=== PATIENT | female | born 1965 | race African-American/Black ===

== ENCOUNTER 2022-03-07 08:50 | Inpatient (IN) | payer MEDICARE, MEDICAID ==
[~2022-03-07] VITALS: Ht 172.7 cm; Wt 62.6 kg
[2022-03-07 10:25] LABS: HEMATOCRIT. 25.1 % (36.0-48.0); HEMOGLOBIN. 8.1 g/dL (12.0-16.0); MEAN CORPUSCULAR HEMOGLOBIN 29.9 pg (28.0-32.0); MEAN CORPUSCULAR VOLUME 92.2 fL (81.0-99.0); MEAN PLATELET VOLUME 10.7 fl (7.4-10.4); PLATELET 210 x1000/uL (130-400); RED BLOOD CELL COUNT 2.72 mill/uL (4.2-5.4); RED CELL DISTRIBUTION WIDTH 18.2 % (11.6-14.6)
[2022-03-07 10:28] LABS: CHLORIDE 99 mEq/L (98-107)
[2022-03-07 11:14] LABS: PLATELET ESTIMATE NORMAL
[2022-03-07] MEDS ORDERED: ASPIRIN 81MG TABLET PO ONE (13:30)
[2022-03-07] MEDS ORDERED: HYDROCODONE/ACETAMINOPHEN 5/325MG TABLET PO ONE (13:30)
[2022-03-07 15:25] LABS: HEPATITIS B SURFACE ANTIGEN NEGATIVE
[2022-03-07 16:02] VITALS: BP 122/47
[2022-03-07 20:00] VITALS: BP 112/67
[2022-03-07 21:33] VITALS: BP 112/67
[2022-03-07] MEDS ORDERED: IPRATROPIUM/ALBUTEROL 0.5-3(2.5)MG/3ML NEB HHN PRN (21:45)
[2022-03-07] MEDS ORDERED: MAGNESIUM/ALUMINUM HYDROXIDE/SIMETHICONE 30ML UDC PO PRN (21:45)
[2022-03-07] MEDS ORDERED: ZOLPIDEM TARTRATE 5MG TABLET PO PRN (21:45)
[2022-03-07] MEDS ORDERED: CLONIDINE 0.1MG TABLET PO PRN (21:45)
[2022-03-07] MEDS ORDERED: ACETAMINOPHEN 325MG TABLET PO PRN ×2 (21:45)
[2022-03-07] MEDS ORDERED: DIPHENHYDRAMINE 50MG/ML VIAL IV PRN (21:45)
[2022-03-07] MEDS ORDERED: ONDANSETRON HCL 4MG/2ML INJ IV PRN (21:45)
[2022-03-07] MEDS ORDERED: NALOXONE HCL 0.4MG/ML VIAL IV PRN (22:45)
[2022-03-07] MEDS: SODIUM CHLORIDE 0.9% INJ 3ML FLUSH IVF SCH (23:59)
[2022-03-08] VITALS: BP 132/68
[2022-03-08] MEDS: HYDROCODONE/ACETAMINOPHEN 5/325MG TABLET PO PRN ×2 (00:04→11:33)
[2022-03-08] MEDS ORDERED: FAMO20TA8 PO (02:25)
[2022-03-08] MEDS ORDERED: ACYC200C31 PO (02:26)
[2022-03-08] MEDS ORDERED: FURO20TA4 PO (02:29)
[2022-03-08] MEDS ORDERED: GABA-532 SSP (02:34)
[2022-03-08] MEDS ORDERED: AMLO5TAB4 PO (02:36)
[2022-03-08] MEDS ORDERED: CALC667T2 PO (02:50)
[2022-03-08] MEDS ORDERED: CALC667T2 MT (02:50)
[2022-03-08 04:00] VITALS: BP 120/72
[2022-03-08 08:00] VITALS: BP 95/62
[2022-03-08 12:00] VITALS: BP 109/71
[2022-03-08] MEDS: SODIUM CHLORIDE 0.9% INJ 3ML FLUSH IVF SCH ×2 (12:17→13:13)
[2022-03-08 16:00] VITALS: BP 109/73
[2022-03-08 17:18] VITALS: BP 110/71
== END 2022-03-08 18:25 | disposition home or self-care (01) | DRG 73 ==
LOC: ER 08:50 → 7WST 13:18 → ENRESERV 13:59
PROVIDERS: ADMIT Internal Medicine; ATTEND Internal Medicine
PROC: 02HV33Z Insertion of Infusion Device into Superior Vena Cava, Percutaneous Approach (ICD-10-PCS; principal; 2022-03-07)
DX: G90.8 Other disorders of autonomic nervous system (principal); N18.6 End stage renal disease; I13.11 Hypertensive heart and chronic kidney disease without heart failure, with stage 5 chronic kidney disease, or end stage renal disease; E46 Unspecified protein-calorie malnutrition; C90.00 Multiple myeloma not having achieved remission; E11.22 Type 2 diabetes mellitus with diabetic chronic kidney disease; Z99.2 Dependence on renal dialysis; D64.9 Anemia, unspecified; E87.70 Fluid overload, unspecified; Z68.21 Body mass index [BMI] 21.0-21.9, adult; Z91.15 Patient's noncompliance with renal dialysis; Z88.3 Allergy status to other anti-infective agents
CPT/HCPCS: 36415; 71045; 80053; 82962; 84484; 85025; 86705; 86709; 86803; 87340; 93005; 99285

== ENCOUNTER 2022-03-19 08:52 | Inpatient (IN) | payer MEDICARE, MEDICAID ==
[~2022-03-19] VITALS: Ht 165.1 cm; Wt 81.2 kg
[~2022-03-19 08:52] MED LIST: ACYC200C31 PO; AMLO5TAB4 PO; CALC667T2 MT; CALC667T2 PO; FAMO20TA8 PO; FURO20TA4 PO; GABA-532 SSP
[2022-03-19 09:37] LABS: MEAN CORPUSCULAR HEMOGLOBIN 28.4 pg (28.0-32.0); MEAN CORPUSCULAR VOLUME 93.6 fL (81.0-99.0); MEAN PLATELET VOLUME 10.1 fl (7.4-10.4); PLATELET 303 x1000/uL (130-400); RED BLOOD CELL COUNT 2.43 mill/uL (4.2-5.4); RED CELL DISTRIBUTION WIDTH 19.2 % (11.6-14.6)
[2022-03-19 09:46] LABS: CHLORIDE 98 mEq/L (98-107)
[2022-03-19 09:48] LABS: INR 1.1; PROTHROMBIN TIME 11.8 sec (9.6-11.0)
[2022-03-19 10:11] LABS: HEMATOCRIT. 22.7 % (36.0-48.0); HEMOGLOBIN. 6.9 g/dL (12.0-16.0)
[2022-03-19 10:41] LABS: PLATELET ESTIMATE NORMAL
[2022-03-19 12:21] LABS: HEPATITIS B SURFACE ANTIGEN NEGATIVE
[2022-03-19 13:33] LABS: CLARITY URINE CLEAR (CLEAR); COLOR URINE YELLOW (YELLOW); KETONES URINE NEGATIVE (NEGATIVE); LEUKOCYTE ESTERASE URINE NEGATIVE (NEGATIVE); NITRITE URINE NEGATIVE (NEGATIVE); OCCULT BLOOD URINE NEGATIVE (NEGATIVE); PH URINE 7.5 (4.5-8.0); PROTEIN URINE 2+ (NEGATIVE); SPECIFIC GRAVITY URINE 1.009 (1.005-1.030); UROBILINOGEN URINE 0.2 E.U./dL (0.2-1.0)
[2022-03-19] MEDS ORDERED: CLONIDINE 0.1MG TABLET PO PRN (14:00)
[2022-03-19] MEDS: SODIUM CHLORIDE 0.9% INJ 3ML FLUSH IVF SCH ×2 (14:00→21:17)
[2022-03-19] MEDS ORDERED: ONDANSETRON HCL 4MG/2ML INJ IV PRN (14:00)
[2022-03-19] MEDS ORDERED: MAGNESIUM HYDROXIDE 400MG/5ML 30ML UDC PO PRN (14:00)
[2022-03-19] MEDS ORDERED: GUAIFENESIN 200MG/10ML SUGAR FREE UDC PO PRN (14:00)
[2022-03-19] MEDS ORDERED: ACETAMINOPHEN 325MG TABLET PO PRN ×2 (14:00)
[2022-03-19] MEDS ORDERED: DIPHENHYDRAMINE 50MG/ML VIAL IV PRN (14:00)
[2022-03-19] MEDS ORDERED: NALOXONE HCL 0.4MG/ML VIAL IV PRN (14:15)
[2022-03-19 15:30] VITALS: BP 105/60
[2022-03-19 16:27] VITALS: BP 110/65
[2022-03-19 20:00] VITALS: BP 90/68
[2022-03-19] MEDS ORDERED: ZOLPIDEM TARTRATE 5MG TABLET PO PRN (21:00)
[2022-03-19] MEDS: OMEPRAZOLE 20MG CAPSULE EXTENDED RELEASE PO SCH (21:16)
[2022-03-19] MEDS: HYDROCODONE/ACETAMINOPHEN 5/325MG TABLET PO PRN (21:17)
[2022-03-20] VITALS (15 sets, daily range): BP systolic 87–120; BP diastolic 47–68
[2022-03-20] MEDS: SODIUM CHLORIDE 0.9% INJ 3ML FLUSH IVF SCH ×3 (06:36→21:47)
[2022-03-20] MEDS: OMEPRAZOLE 20MG CAPSULE EXTENDED RELEASE PO SCH ×2 (06:36→21:00)
[2022-03-20] MEDS: HYDROCODONE/ACETAMINOPHEN 5/325MG TABLET PO PRN ×2 (06:37→16:57)
[2022-03-20 06:58] LABS: MEAN CORPUSCULAR HEMOGLOBIN 28.3 pg (28.0-32.0); MEAN CORPUSCULAR VOLUME 90.2 fL (81.0-99.0); PLATELET 245 x1000/uL (130-400); RED BLOOD CELL COUNT 2.09 mill/uL (4.2-5.4); RED CELL DISTRIBUTION WIDTH 18.5 % (11.6-14.6)
[2022-03-20 07:32] LABS: HEMATOCRIT. 18.9 % (36.0-48.0); HEMOGLOBIN. 5.9 g/dL (12.0-16.0)
[2022-03-20] MEDS ORDERED: VANCOMYCIN 1.25GM PMX (XELLIA) 250 ML IV SCH (10:00)
[2022-03-20 11:46] LABS: TOTAL IRON BINDING CAPACITY 153 ug/dL (250-450)
[2022-03-20 15:39] LABS: PLATELET ESTIMATE NORMAL
[2022-03-21] VITALS: BP 95/54
[2022-03-21 04:00] VITALS: BP 115/56
[2022-03-21] MEDS: SODIUM CHLORIDE 0.9% INJ 3ML FLUSH IVF SCH ×2 (05:11→14:00)
[2022-03-21] MEDS: OMEPRAZOLE 20MG CAPSULE EXTENDED RELEASE PO SCH (06:13)
[2022-03-21 08:08] VITALS: BP 100/63
[2022-03-21 08:15] LABS: HEMATOCRIT. 24.4 % (36.0-48.0); HEMOGLOBIN. 7.9 g/dL (12.0-16.0); MEAN CORPUSCULAR HEMOGLOBIN 28.1 pg (28.0-32.0); MEAN CORPUSCULAR VOLUME 86.2 fL (81.0-99.0); MEAN PLATELET VOLUME 9.7 fl (7.4-10.4); PLATELET 260 x1000/uL (130-400); RED BLOOD CELL COUNT 2.83 mill/uL (4.2-5.4); RED CELL DISTRIBUTION WIDTH 21.2 % (11.6-14.6)
[2022-03-21 11:50] VITALS: BP 118/65
[2022-03-21] MEDS ORDERED: IRON SUCROSE COMPLEX 100 MG/5 ML ML IV NR (15:30)
[2022-03-21 16:08] VITALS: BP 117/78
[2022-03-21 16:29] VITALS: BP 117/78
[2022-03-22 07:51] LABS: PLATELET ESTIMATE NORMAL
[2022-03-22 09:10] LABS: LAMBDA LT CHAINS FREE SERUM 4801.5 mg/L (5.7-26.3)
== END 2022-03-21 16:46 | disposition home or self-care (01) | DRG 70 ==
LOC: ER 08:52 → 6WST 11:51 → EDBEDREQSVC 11:58 → EDBEDREQTM 11:58 → EDBEDREQ 11:58 → ENRESERV 12:14
PROVIDERS: ADMIT Internal Medicine; ATTEND Internal Medicine
PROC: 5A1D70Z Performance of Urinary Filtration, Intermittent, Less than 6 Hours Per Day (ICD-10-PCS; principal; 2022-03-19)
PROC: 30233N1 Transfusion of Nonautologous Red Blood Cells into Peripheral Vein, Percutaneous Approach (ICD-10-PCS; 2022-03-20)
PROC: 5A1D70Z Performance of Urinary Filtration, Intermittent, Less than 6 Hours Per Day (ICD-10-PCS; 2022-03-21)
DX: G93.41 Metabolic encephalopathy (principal); N18.6 End stage renal disease; I12.0 Hypertensive chronic kidney disease with stage 5 chronic kidney disease or end stage renal disease; C90.00 Multiple myeloma not having achieved remission; D72.825 Bandemia; E61.1 Iron deficiency; E66.9 Obesity, unspecified; M19.90 Unspecified osteoarthritis, unspecified site; F03.90 Unspecified dementia, unspecified severity, without behavioral disturbance, psychotic disturbance, mood disturbance, and anxiety; D64.9 Anemia, unspecified; Z99.2 Dependence on renal dialysis; Z68.29 Body mass index [BMI] 29.0-29.9, adult; Z88.6 Allergy status to analgesic agent; Z79.899 Other long term (current) drug therapy
CPT/HCPCS: 36415; 71045; 80048; 80053; 80202; 81003; 82784; 83540; 83550; 83605; 83883; 84145; 85025; 86334; 86705; 86709; 86803; 86850; 86870; 86900; 86920; 87340; 93005; 99291; J3370; P9016

== ENCOUNTER 2022-04-01 14:05 | Inpatient (IN) | payer MEDICARE, MEDICAID ==
[~2022-04-01] VITALS: Ht 167.6 cm; Wt 64.9 kg
[2022-04-01] VITALS (24 sets, daily range): BP systolic 76–208; BP diastolic 54–137
[2022-04-01] MEDS ORDERED: SODIUM CHLORIDE 0.9% 1,000 ML IV ONE (14:45)
[2022-04-01 15:30] LABS: CLARITY URINE CLEAR (CLEAR); COLOR URINE YELLOW (YELLOW); KETONES URINE NEGATIVE (NEGATIVE); LEUKOCYTE ESTERASE URINE NEGATIVE (NEGATIVE); NITRITE URINE NEGATIVE (NEGATIVE); OCCULT BLOOD URINE TRACE (NEGATIVE); PH URINE 7.5 (4.5-8.0); PROTEIN URINE 2+ (NEGATIVE); SPECIFIC GRAVITY URINE 1.015 (1.005-1.030)
[2022-04-01 15:40] LABS: MEAN CORPUSCULAR HEMOGLOBIN 26.4 pg (28.0-32.0); MEAN CORPUSCULAR VOLUME 89.1 fL (81.0-99.0); MEAN PLATELET VOLUME 10.9 fl (7.4-10.4); PLATELET 263 x1000/uL (130-400); RED BLOOD CELL COUNT 1.69 mill/uL (4.2-5.4); RED CELL DISTRIBUTION WIDTH 20.7 % (11.6-14.6)
[2022-04-01 15:44] LABS: INR 1.1
[2022-04-01 15:53] LABS: HEMATOCRIT. 15.1 % (36.0-48.0); HEMOGLOBIN. 4.5 g/dL (12.0-16.0)
[2022-04-01 16:43] LABS: CHLORIDE 97 mEq/L (98-107)
[2022-04-01] MEDS ORDERED: VANCOMYCIN 1G PREMIX 200 ML IV ONE (17:00)
[2022-04-01] MEDS ORDERED: PIPERACILLIN/TAZ 3.375G PREMIX 50 ML IV ONE (17:00)
[2022-04-01] MEDS ORDERED: FUROSEMIDE 100MG/10ML VIAL IV STA (17:07)
[2022-04-01] MEDS ORDERED: INSULIN REGULAR (HUMULIN R) 300UNITS/3ML VIAL IV ONE (17:15)
[2022-04-01] MEDS ORDERED: CALCIUM CHLORIDE 1GM/10ML SYR IV ONE (17:15)
[2022-04-01] MEDS ORDERED: DEXTROSE 50% WATER 50ML SYRINGE IV ONE (17:15)
[2022-04-01 17:41] LABS: PLATELET ESTIMATE NORMAL
[2022-04-01] MEDS ORDERED: VANCOMYCIN 1GM PMX (XELLIA) 200 ML IV NR (18:45)
[2022-04-01 19:42] LABS: HEPATITIS B SURFACE ANTIGEN NEGATIVE
[2022-04-01] MEDS ORDERED: ONDANSETRON HCL 4MG/2ML INJ IV PRN (20:45)
[2022-04-01] MEDS ORDERED: ACETAMINOPHEN 325MG TABLET PO PRN (20:45)
[2022-04-01] MEDS ORDERED: HYDRALAZINE 20MG/ML VIAL IV PRN (20:45)
[2022-04-01] MEDS: PANTOPRAZOLE SODIUM 40 MG/VIAL IV SCH (23:00)
[2022-04-02] VITALS (86 sets, daily range): BP systolic 81–121; BP diastolic 46–90
[2022-04-02] MEDS ORDERED: MAGNESIUM/ALUMINUM HYDROXIDE/SIMETHICONE 30ML UDC PO PRN (01:45)
[2022-04-02] MEDS ORDERED: DIPHENHYDRAMINE 50MG/ML VIAL IV PRN (01:45)
[2022-04-02] MEDS ORDERED: ZOLPIDEM TARTRATE 5MG TABLET PO PRN (01:45)
[2022-04-02] MEDS ORDERED: CLONIDINE 0.1MG TABLET PO PRN (01:45)
[2022-04-02] MEDS ORDERED: ACETAMINOPHEN 325MG TABLET PO PRN ×2 (01:45)
[2022-04-02 01:59] LABS: MEAN CORPUSCULAR HEMOGLOBIN 26.7 pg (28.0-32.0); MEAN CORPUSCULAR VOLUME 84.9 fL (81.0-99.0); PLATELET 203 x1000/uL (130-400); RED BLOOD CELL COUNT 2.35 mill/uL (4.2-5.4); RED CELL DISTRIBUTION WIDTH 18.6 % (11.6-14.6)
[2022-04-02 02:07] LABS: HEMOGLOBIN 6.3 g/dL (12.0-16.0)
[2022-04-02] MEDS: IRON SUCROSE COMPLEX 100 MG/5 ML ML IV SCH (02:43)
[2022-04-02] MEDS: HYDROCODONE/ACETAMINOPHEN 5/325MG TABLET PO PRN (03:19)
[2022-04-02] MEDS: SODIUM CHLORIDE 0.9% INJ 3ML FLUSH IVF SCH ×3 (05:33→22:18)
[2022-04-02 08:44] LABS: HEMATOCRIT. 22.8 % (36.0-48.0); HEMOGLOBIN. 7.6 g/dL (12.0-16.0); MEAN CORPUSCULAR HEMOGLOBIN 27.4 pg (28.0-32.0); MEAN CORPUSCULAR VOLUME 82.5 fL (81.0-99.0); MEAN PLATELET VOLUME 10.4 fl (7.4-10.4); PLATELET 209 x1000/uL (130-400); RED BLOOD CELL COUNT 2.77 mill/uL (4.2-5.4); RED CELL DISTRIBUTION WIDTH 17.6 % (11.6-14.6)
[2022-04-02] MEDS: PANTOPRAZOLE SODIUM 40 MG/VIAL IV SCH (08:49)
[2022-04-02] MEDS: PIPERACILLIN/TAZOBACTAM 3.375 G in DEXTROSE 5% WATER 50 ML IV SCH ×2 (08:49→21:43)
[2022-04-02] MEDS ORDERED: VANCOMYCIN 500MG PREMIX 100 ML IV SCH ×2 (10:00→16:00)
[2022-04-02 12:30] LABS: PLATELET ESTIMATE NORMAL
[2022-04-03] VITALS (27 sets, daily range): BP systolic 84–129; BP diastolic 37–94
[2022-04-03] MEDS ORDERED: IRON SUCROSE COMPLEX 100 MG/5 ML ML IV NR (04:30)
[2022-04-03] MEDS: IRON SUCROSE COMPLEX 100 MG/5 ML ML IV SCH (04:39)
[2022-04-03 05:30] LABS: HEMATOCRIT 21.8 % (36.0-48.0); HEMOGLOBIN 7.1 g/dL (12.0-16.0); MEAN CORPUSCULAR HEMOGLOBIN 27.6 pg (28.0-32.0); PLATELET 168 x1000/uL (130-400); RED BLOOD CELL COUNT 2.56 mill/uL (4.2-5.4); RED CELL DISTRIBUTION WIDTH 18.4 % (11.6-14.6)
[2022-04-03] MEDS: SODIUM CHLORIDE 0.9% INJ 3ML FLUSH IVF SCH ×2 (06:34→14:00)
[2022-04-03 08:37] LABS: BG BASE EXCESS -0.9 mmol/L (-2.0-2.0); BG CARBOXYHEMOGLOBIN 1.9 % (0.5-1.5); BG DEOXYHEMOGLOBIN 3.2 % (0.0-5.0); BG FRACTION INSPIRED OXYGEN 21; BG HCO3 ACT 23.4 mmol/L (22.0-26.0); BG METHEMOGLOBIN 0.3 % (0.0-1.5); BG OXYGEN SATURATION 96.7 % (92.0-98.5); BG OXYHEMOGLOBIN 94.6 % (94.0-97.0); BG PCO2 36.6 mmHg (35.0-45.0); BG PH 7.423 (7.350-7.450); BG PO2 84.3 mmHg (75.0-100.0); BG SAMPLE SITE LEFT RADIAL; BG VENT MODE ROOM AIR
[2022-04-03] MEDS: PANTOPRAZOLE SODIUM 40 MG/VIAL IV SCH (09:31)
[2022-04-03] MEDS: PIPERACILLIN/TAZOBACTAM 3.375 G in DEXTROSE 5% WATER 50 ML IV SCH ×2 (09:32→23:27)
[2022-04-03] MEDS ORDERED: VANCOMYCIN 500MG PREMIX 100 ML IV SCH (21:00)
[2022-04-04] VITALS: BP 104/58
[2022-04-04 04:00] VITALS: BP 95/52
[2022-04-04] MEDS: HYDROCODONE/ACETAMINOPHEN 5/325MG TABLET PO PRN (04:39)
[2022-04-04 08:00] VITALS: BP 105/60
[2022-04-04] MEDS: PIPERACILLIN/TAZOBACTAM 3.375 G in DEXTROSE 5% WATER 50 ML IV SCH ×2 (09:00→20:13)
[2022-04-04] MEDS: PANTOPRAZOLE SODIUM 40 MG/VIAL IV SCH (09:06)
[2022-04-04 12:00] VITALS: BP 103/55
[2022-04-04] MEDS: SEVELAMER CARBONATE 800 MG TABLET PO SCH ×2 (12:50→17:50)
[2022-04-04] MEDS: SODIUM CHLORIDE 0.9% INJ 3ML FLUSH IVF SCH (14:00)
[2022-04-04 16:00] VITALS: BP 107/61
[2022-04-04 20:00] VITALS: BP 115/67
[2022-04-05] VITALS: BP 101/52
[2022-04-05 04:00] VITALS: BP 100/55
[2022-04-05 08:00] VITALS: BP 109/59
[2022-04-05 08:22] LABS: HEMATOCRIT. 21.9 % (36.0-48.0); HEMOGLOBIN. 7.1 g/dL (12.0-16.0); MEAN CORPUSCULAR HEMOGLOBIN 27.2 pg (28.0-32.0); MEAN CORPUSCULAR VOLUME 84.1 fL (81.0-99.0); MEAN PLATELET VOLUME 10.4 fl (7.4-10.4); PLATELET 141 x1000/uL (130-400); RED CELL DISTRIBUTION WIDTH 18.6 % (11.6-14.6)
[2022-04-05] MEDS: PIPERACILLIN/TAZOBACTAM 3.375 G in DEXTROSE 5% WATER 50 ML IV SCH ×2 (09:14→20:32)
[2022-04-05] MEDS: SEVELAMER CARBONATE 800 MG TABLET PO SCH ×3 (09:14→17:53)
[2022-04-05] MEDS: PANTOPRAZOLE SODIUM 40 MG/VIAL IV SCH (09:14)
[2022-04-05] MEDS: FOLIC ACID/VITAMIN B COMP W-C TABLET PO SCH (09:14)
[2022-04-05 12:07] VITALS: BP 90/55
[2022-04-05] MEDS: SODIUM CHLORIDE 0.9% INJ 3ML FLUSH IVF SCH ×2 (14:00→21:40)
[2022-04-05 16:05] VITALS: BP 89/54
[2022-04-05] MEDS: MIDODRINE HCL 5MG TABLET PO SCH (16:11)
[2022-04-05 19:23] LABS: PLATELET ESTIMATE NORMAL
[2022-04-05 20:00] VITALS: BP 106/62
[2022-04-06] VITALS: BP 91/41
[2022-04-06 04:00] VITALS: BP 100/52
[2022-04-06] MEDS: SODIUM CHLORIDE 0.9% INJ 3ML FLUSH IVF SCH ×3 (05:40→21:15)
[2022-04-06 08:00] VITALS: BP 102/57
[2022-04-06 08:57] LABS: HEMATOCRIT. 21.7 % (36.0-48.0); HEMOGLOBIN. 7.1 g/dL (12.0-16.0); MEAN CORPUSCULAR HEMOGLOBIN 27.1 pg (28.0-32.0); MEAN PLATELET VOLUME 10.4 fl (7.4-10.4); PLATELET 145 x1000/uL (130-400); RED BLOOD CELL COUNT 2.62 mill/uL (4.2-5.4); RED CELL DISTRIBUTION WIDTH 18.4 % (11.6-14.6)
[2022-04-06] MEDS: FOLIC ACID/VITAMIN B COMP W-C TABLET PO SCH (09:34)
[2022-04-06] MEDS: PIPERACILLIN/TAZOBACTAM 3.375 G in DEXTROSE 5% WATER 50 ML IV SCH ×2 (09:34→21:19)
[2022-04-06] MEDS: PANTOPRAZOLE SODIUM 40 MG/VIAL IV SCH (09:34)
[2022-04-06] MEDS: SEVELAMER CARBONATE 800 MG TABLET PO SCH ×3 (09:34→16:58)
[2022-04-06] MEDS: MIDODRINE HCL 5MG TABLET PO SCH ×3 (09:35→16:58)
[2022-04-06 12:30] VITALS: BP 99/60
[2022-04-06 16:30] VITALS: BP 113/70
[2022-04-06] MEDS ORDERED: NALOXONE HCL 0.4MG/ML VIAL IV PRN (18:15)
[2022-04-06 20:00] VITALS: BP 111/62
[2022-04-07] VITALS: BP 104/61
[2022-04-07 04:00] VITALS: BP 100/60
[2022-04-07] MEDS: SODIUM CHLORIDE 0.9% INJ 3ML FLUSH IVF SCH ×3 (06:22→22:00)
[2022-04-07 07:11] LABS: MEAN CORPUSCULAR HEMOGLOBIN 27.1 pg (28.0-32.0); MEAN CORPUSCULAR VOLUME 83.7 fL (81.0-99.0); MEAN PLATELET VOLUME 10.8 fl (7.4-10.4); PLATELET 137 x1000/uL (130-400); RED BLOOD CELL COUNT 2.45 mill/uL (4.2-5.4); RED CELL DISTRIBUTION WIDTH 18.7 % (11.6-14.6)
[2022-04-07 07:50] LABS: HEMOGLOBIN. 6.6 g/dL (12.0-16.0)
[2022-04-07] MEDS: SEVELAMER CARBONATE 800 MG TABLET PO SCH ×3 (07:50→17:50)
[2022-04-07 07:51] LABS: HEMATOCRIT. 20.5 % (36.0-48.0)
[2022-04-07 08:00] VITALS: BP 97/52
[2022-04-07] MEDS: MIDODRINE HCL 5MG TABLET PO SCH ×3 (09:28→17:00)
[2022-04-07] MEDS: FOLIC ACID/VITAMIN B COMP W-C TABLET PO SCH (09:28)
[2022-04-07] MEDS: PANTOPRAZOLE SODIUM 40 MG/VIAL IV SCH (09:28)
[2022-04-07 11:41] LABS: PLATELET ESTIMATE NORMAL
[2022-04-07 16:00] VITALS: BP 109/59
[2022-04-07 20:00] VITALS: BP 90/50
[2022-04-07 20:40] LABS: PLATELET ESTIMATE NORMAL
[2022-04-08] VITALS: BP 90/57
[2022-04-08 04:00] VITALS: BP 93/60
[2022-04-08 08:00] VITALS: BP 104/61
[2022-04-08] MEDS: FOLIC ACID/VITAMIN B COMP W-C TABLET PO SCH (08:50)
[2022-04-08] MEDS: SEVELAMER CARBONATE 800 MG TABLET PO SCH ×3 (08:50→17:30)
[2022-04-08] MEDS: PANTOPRAZOLE SODIUM 40 MG/VIAL IV SCH (08:50)
[2022-04-08] MEDS: MIDODRINE HCL 5MG TABLET PO SCH ×3 (08:52→17:30)
[2022-04-08 12:00] VITALS: BP 104/58
[2022-04-08] MEDS: SODIUM CHLORIDE 0.9% INJ 3ML FLUSH IVF SCH ×2 (14:00→22:48)
[2022-04-08 16:00] VITALS: BP 114/68
[2022-04-08 16:27] LABS: MEAN CORPUSCULAR HEMOGLOBIN 27.1 pg (28.0-32.0); MEAN CORPUSCULAR VOLUME 83.8 fL (81.0-99.0); MEAN PLATELET VOLUME 10.7 fl (7.4-10.4); PLATELET 149 x1000/uL (130-400); RED BLOOD CELL COUNT 2.46 mill/uL (4.2-5.4); RED CELL DISTRIBUTION WIDTH 18.5 % (11.6-14.6)
[2022-04-08 16:35] LABS: HEMATOCRIT. 20.6 % (36.0-48.0); HEMOGLOBIN. 6.7 g/dL (12.0-16.0)
[2022-04-08 23:17] LABS: PLATELET ESTIMATE NORMAL
[2022-04-09] VITALS: BP 95/51
[2022-04-09 01:45] LABS: HEMATOCRIT 23.5 % (36.0-48.0); HEMOGLOBIN 7.6 g/dL (12.0-16.0)
[2022-04-09 04:00] VITALS: BP 89/50
[2022-04-09] MEDS: SEVELAMER CARBONATE 800 MG TABLET PO SCH ×4 (07:50→17:14)
[2022-04-09 08:00] VITALS: BP 88/44
[2022-04-09 08:48] LABS: HEMATOCRIT. 22.3 % (36.0-48.0); HEMOGLOBIN. 7.4 g/dL (12.0-16.0); MEAN CORPUSCULAR HEMOGLOBIN 27.8 pg (28.0-32.0); MEAN CORPUSCULAR VOLUME 84.3 fL (81.0-99.0); MEAN PLATELET VOLUME 10.5 fl (7.4-10.4); PLATELET 133 x1000/uL (130-400); RED BLOOD CELL COUNT 2.65 mill/uL (4.2-5.4); RED CELL DISTRIBUTION WIDTH 17.9 % (11.6-14.6)
[2022-04-09] MEDS: PANTOPRAZOLE SODIUM 40 MG/VIAL IV SCH ×2 (08:49→09:00)
[2022-04-09] MEDS: FOLIC ACID/VITAMIN B COMP W-C TABLET PO SCH (09:00)
[2022-04-09] MEDS: MIDODRINE HCL 5MG TABLET PO SCH ×4 (09:00→17:00)
[2022-04-09 09:48] VITALS: BP 88/44
[2022-04-09] MEDS ORDERED: POTASSIUM CHLORIDE 20MEQ TABLET SR PO NR (11:00)
[2022-04-09 20:19] LABS: PLATELET ESTIMATE NORMAL
== END 2022-04-09 17:10 | disposition home or self-care (01) | DRG 871 ==
LOC: ER 14:27 → MICUNO 18:40 → EDBEDREQ 18:45 → EDBEDREQSVC 18:45 → EDBEDREQTM 18:45 → ENRESERV 19:11 → 6WST 04-03 20:45 → 6EST 04-07 10:45
PROVIDERS: ADMIT Internal Medicine; ATTEND Internal Medicine
PROC: 5A1D70Z Performance of Urinary Filtration, Intermittent, Less than 6 Hours Per Day (ICD-10-PCS; principal; 2022-04-01)
PROC: 30233N1 Transfusion of Nonautologous Red Blood Cells into Peripheral Vein, Percutaneous Approach (ICD-10-PCS; 2022-04-01)
PROC: 5A1D70Z Performance of Urinary Filtration, Intermittent, Less than 6 Hours Per Day (ICD-10-PCS; 2022-04-03)
PROC: 5A1D70Z Performance of Urinary Filtration, Intermittent, Less than 6 Hours Per Day (ICD-10-PCS; 2022-04-05)
DX: A41.9 Sepsis, unspecified organism (principal); G92.8 Other toxic encephalopathy; J96.01 Acute respiratory failure with hypoxia; N18.6 End stage renal disease; E87.2 Acidosis; I12.0 Hypertensive chronic kidney disease with stage 5 chronic kidney disease or end stage renal disease; C90.00 Multiple myeloma not having achieved remission; D61.818 Other pancytopenia; E87.5 Hyperkalemia; D63.1 Anemia in chronic kidney disease; E66.9 Obesity, unspecified; I95.9 Hypotension, unspecified; K21.9 Gastro-esophageal reflux disease without esophagitis; Z88.8 Allergy status to other drugs, medicaments and biological substances; Z79.899 Other long term (current) drug therapy; Z99.2 Dependence on renal dialysis; Z68.23 Body mass index [BMI] 23.0-23.9, adult; Z91.15 Patient's noncompliance with renal dialysis; Z91.19 Patient's noncompliance with other medical treatment and regimen
CPT/HCPCS: 36415; 36600; 71045; 74176; 80048; 80053; 80076; 80202; 81003; 82375; 82805; 82962; 83605; 84132; 84145; 85014; 85018; 85025; 85027; 86705; 86709; 86803; 86850; 86870; 86900; 86920; 87340; 93005; 99291; C9113; J1815; J1940; J2543; J3370; J3490; J7030; J7060; P9016; A4315

== ENCOUNTER 2022-05-07 08:26 | Inpatient (IN) | payer MEDICARE, MEDICAID ==
[~2022-05-07] VITALS: Ht 172.7 cm; Wt 59.9 kg
[~2022-05-07 08:26] MED LIST changes: -CALC667T2 PO
[2022-05-07] MEDS ORDERED: SODIUM CHLORIDE 0.9% 1000ML BAG (SEPSIS BOLUS) IV ONE (09:45)
[2022-05-07 09:52] LABS: MEAN CORPUSCULAR HEMOGLOBIN 27.9 pg (28.0-32.0); MEAN CORPUSCULAR VOLUME 85.6 fL (81.0-99.0); MEAN PLATELET VOLUME 10.5 fl (7.4-10.4); RED BLOOD CELL COUNT 2.28 mill/uL (4.2-5.4); RED CELL DISTRIBUTION WIDTH 17.2 % (11.6-14.6)
[2022-05-07 09:58] LABS: CHLORIDE 94 mEq/L (98-107)
[2022-05-07] MEDS ORDERED: VANCOMYCIN 1G PREMIX 200 ML IV ONE (10:00)
[2022-05-07] MEDS ORDERED: PIPERACILLIN/TAZ 3.375G PREMIX 50 ML IV ONE (10:00)
[2022-05-07 10:03] LABS: HEMATOCRIT. 19.6 % (36.0-48.0); HEMOGLOBIN. 6.4 g/dL (12.0-16.0); PLATELET 45 x1000/uL (130-400)
[2022-05-07 10:20] LABS: INR 1.1; PROTHROMBIN TIME 11.9 sec (9.6-11.0)
[2022-05-07 10:22] LABS: PLATELET ESTIMATE MARKEDLY DECREASED
[2022-05-07 16:00] VITALS: BP 101/53
[2022-05-07] MEDS ORDERED: ONDANSETRON HCL 4MG/2ML INJ IV PRN (16:00)
[2022-05-07] MEDS ORDERED: MAGNESIUM/ALUMINUM HYDROXIDE/SIMETHICONE 30ML UDC PO PRN (16:00)
[2022-05-07] MEDS ORDERED: CLONIDINE 0.1MG TABLET PO PRN (16:00)
[2022-05-07 16:06] VITALS: BP 101/53
[2022-05-07] MEDS: ACETAMINOPHEN 325MG TABLET PO PRN (16:54)
[2022-05-07 17:11] LABS: INR 1.1; PROTHROMBIN TIME 11.9 sec (9.6-11.0)
[2022-05-07 17:12] LABS: HEMATOCRIT. 22.1 % (36.0-48.0); HEMOGLOBIN. 7.4 g/dL (12.0-16.0); MEAN CORPUSCULAR HEMOGLOBIN 28.8 pg (28.0-32.0); MEAN CORPUSCULAR VOLUME 85.7 fL (81.0-99.0); MEAN PLATELET VOLUME 9.4 fl (7.4-10.4); RED BLOOD CELL COUNT 2.58 mill/uL (4.2-5.4); RED CELL DISTRIBUTION WIDTH 16.6 % (11.6-14.6)
[2022-05-07 17:17] LABS: FIBRINOGEN > 850 mg/dL (200-400)
[2022-05-07 17:33] LABS: PLATELET 35 x1000/uL (130-400)
[2022-05-07] MEDS: CEFEPIME 1,000 MG in DEXTROSE 5% WATER 50 ML IV SCH (18:26)
[2022-05-07 18:35] LABS: TOTAL IRON BINDING CAPACITY 372 ug/dL (250-450)
[2022-05-07 18:36] LABS: PLATELET ESTIMATE MARKEDLY DECREASED
[2022-05-07] MEDS ORDERED: SODIUM CHLORIDE 0.9% 100 ML IV ONE (19:00)
[2022-05-07 19:01] LABS: VITAMIN B12 SERUM >2000 pg/mL pg/mL (211-911)
[2022-05-07 20:00] VITALS: BP 83/43
[2022-05-07] MEDS ORDERED: SODIUM CHLORIDE 0.9% 1,000 ML IV NR (20:00)
[2022-05-07] MEDS ORDERED: SODIUM CHLORIDE 0.9% 100 ML IV NR (20:00)
[2022-05-07 20:21] LABS: FERRITIN > 1650 ng/mL (10-291)
[2022-05-07] MEDS ORDERED: PIPERACILLIN/TAZOBACTAM 3.375 G in DEXTROSE 5% WATER 50 ML IV SCH (21:00)
[2022-05-07 23:40] VITALS: BP 84/49
[2022-05-08] VITALS (9 sets, daily range): BP systolic 84–98; BP diastolic 49–57
[2022-05-08] MEDS: ACETAMINOPHEN 325MG TABLET PO PRN (02:38)
[2022-05-08 08:05] LABS: HEMATOCRIT. 25.4 % (36.0-48.0); HEMOGLOBIN. 8.6 g/dL (12.0-16.0); MEAN CORPUSCULAR HEMOGLOBIN 29.4 pg (28.0-32.0); MEAN CORPUSCULAR VOLUME 86.8 fL (81.0-99.0); MEAN PLATELET VOLUME 9.8 fl (7.4-10.4); RED BLOOD CELL COUNT 2.92 mill/uL (4.2-5.4); RED CELL DISTRIBUTION WIDTH 16.3 % (11.6-14.6)
[2022-05-08] MEDS: PANTOPRAZOLE SODIUM 40 MG/VIAL IV SCH (08:12)
[2022-05-08 08:18] LABS: PHOSPHORUS 3.9 mg/dL (2.5-4.9)
[2022-05-08] MEDS: MIDODRINE HCL 5MG TABLET PO SCH ×3 (09:05→21:48)
[2022-05-08 10:56] LABS: PLATELET ESTIMATE MARKEDLY DECREASED
[2022-05-08 10:57] LABS: PLATELET 30 x1000/uL (130-400)
[2022-05-08] MEDS: FOLIC ACID 1MG TABLET PO SCH (13:51)
[2022-05-08] MEDS: CEFEPIME 1,000 MG in DEXTROSE 5% WATER 50 ML IV SCH (17:00)
[2022-05-08] MEDS ORDERED: VANCOMYCIN 750MG PREMIX 150 ML IV SCH (18:00)
[2022-05-08] MEDS ORDERED: NALOXONE HCL 0.4MG/ML VIAL IV PRN (19:30)
[2022-05-09] VITALS: BP 99/54
[2022-05-09 04:00] VITALS: BP 91/52
[2022-05-09] MEDS: MIDODRINE HCL 5MG TABLET PO SCH ×3 (05:55→21:42)
[2022-05-09 06:52] LABS: HEMATOCRIT. 23.6 % (36.0-48.0); MEAN CORPUSCULAR HEMOGLOBIN 29.7 pg (28.0-32.0); MEAN CORPUSCULAR VOLUME 87.5 fL (81.0-99.0); MEAN PLATELET VOLUME 10.3 fl (7.4-10.4); RED BLOOD CELL COUNT 2.69 mill/uL (4.2-5.4); RED CELL DISTRIBUTION WIDTH 16.6 % (11.6-14.6)
[2022-05-09 07:25] LABS: PLATELET 30 x1000/uL (130-400)
[2022-05-09 08:00] VITALS: BP 95/61
[2022-05-09] MEDS: FOLIC ACID 1MG TABLET PO SCH (09:06)
[2022-05-09] MEDS: PANTOPRAZOLE SODIUM 40 MG/VIAL IV SCH (09:06)
[2022-05-09 10:36] LABS: PLATELET ESTIMATE MARKEDLY DECREASED
[2022-05-09] MEDS ORDERED: BISACODYL 10MG SUPP PR SCH (11:00)
[2022-05-09 12:00] VITALS: BP 93/59
[2022-05-09 14:03] LABS: HEPATITIS B SURFACE ANTIGEN NEGATIVE
[2022-05-09 16:00] VITALS: BP 99/54
[2022-05-09] MEDS: CEFEPIME 1,000 MG in DEXTROSE 5% WATER 50 ML IV SCH (17:24)
[2022-05-09 20:00] VITALS: BP 102/60
[2022-05-10] VITALS: BP 99/54
[2022-05-10 04:00] VITALS: BP 96/53
[2022-05-10] MEDS: MIDODRINE HCL 5MG TABLET PO SCH ×3 (05:06→22:00)
[2022-05-10 08:29] LABS: CHLORIDE 101 mEq/L (98-107)
[2022-05-10 08:34] LABS: HEMATOCRIT. 23.6 % (36.0-48.0); MEAN CORPUSCULAR HEMOGLOBIN 29.6 pg (28.0-32.0); MEAN CORPUSCULAR VOLUME 87.5 fL (81.0-99.0); MEAN PLATELET VOLUME 9.8 fl (7.4-10.4); RED CELL DISTRIBUTION WIDTH 16.7 % (11.6-14.6)
[2022-05-10] MEDS: FOLIC ACID 1MG TABLET PO SCH ×2 (09:00→09:41)
[2022-05-10] MEDS: PANTOPRAZOLE SODIUM 40 MG/VIAL IV SCH ×2 (09:00→09:41)
[2022-05-10 09:11] LABS: PLATELET 30 x1000/uL (130-400)
[2022-05-10 12:25] LABS: PLATELET ESTIMATE MARKEDLY DECREASED
[2022-05-10 16:00] VITALS: BP 104/67
[2022-05-10] MEDS: CEFEPIME 1,000 MG in DEXTROSE 5% WATER 50 ML IV SCH (19:59)
[2022-05-10 20:00] VITALS: BP 106/65
[2022-05-11] VITALS: BP 104/61
[2022-05-11 04:00] VITALS: BP 117/71
[2022-05-11] MEDS: MIDODRINE HCL 5MG TABLET PO SCH ×3 (05:36→22:09)
[2022-05-11 08:00] VITALS: BP_SYST 113; BP_SYST 120; BP_DIAS 72; BP_DIAS 75
[2022-05-11 08:27] LABS: BASOPHILS % 0.3 % (0.0-2.0); EOSINOPHILS % 0.1 % (0.0-5.0); HEMATOCRIT. 22.6 % (36.0-48.0); HEMOGLOBIN. 7.6 g/dL (12.0-16.0); LYMPHOCYTES % 9.7 % (20.0-50.0); MEAN CORPUSCULAR HEMOGLOBIN 29.6 pg (28.0-32.0); MEAN CORPUSCULAR VOLUME 88.1 fL (81.0-99.0); MEAN PLATELET VOLUME 9.7 fl (7.4-10.4); MONOCYTES % 15.5 % (2.0-8.0); NEUTROPHILS % 74.4 % (40.0-76.0); RED BLOOD CELL COUNT 2.56 mill/uL (4.2-5.4)
[2022-05-11 08:35] LABS: PLATELET 25 x1000/uL (130-400)
[2022-05-11] MEDS: POLYETHYLENE GLYCOL 3350 (17GM) 1 DOSE PACK PO SCH (08:56)
[2022-05-11] MEDS: FOLIC ACID 1MG TABLET PO SCH (08:56)
[2022-05-11] MEDS: PANTOPRAZOLE SODIUM 40 MG/VIAL IV SCH (08:56)
[2022-05-11 12:00] VITALS: BP 113/72
[2022-05-11] MEDS ORDERED: VANCOMYCIN 500MG PREMIX 100 ML IV SCH (13:00)
[2022-05-11] MEDS: HYDROCODONE/ACETAMINOPHEN 5/325MG TABLET PO PRN (13:29)
[2022-05-11] MEDS: MEGESTROL ACETATE 400 MG/10 ML UDC PO SCH (14:20)
[2022-05-11 16:00] VITALS: BP 112/66
[2022-05-11] MEDS: ACETAMINOPHEN 325MG TABLET PO PRN (16:35)
[2022-05-11] MEDS: CEFEPIME 1,000 MG in DEXTROSE 5% WATER 50 ML IV SCH (17:39)
[2022-05-11 20:00] VITALS: BP 102/61
[2022-05-12] VITALS: BP 103/66
[2022-05-12] MEDS: HYDROCODONE/ACETAMINOPHEN 5/325MG TABLET PO PRN (02:24)
[2022-05-12 04:00] VITALS: BP 118/76
[2022-05-12] MEDS: MIDODRINE HCL 5MG TABLET PO SCH ×4 (06:00→22:00)
[2022-05-12 06:25] LABS: HEMATOCRIT. 22.2 % (36.0-48.0); HEMOGLOBIN. 7.5 g/dL (12.0-16.0); MEAN CORPUSCULAR HEMOGLOBIN 29.9 pg (28.0-32.0); MEAN CORPUSCULAR VOLUME 88.9 fL (81.0-99.0); MEAN PLATELET VOLUME 8.9 fl (7.4-10.4); RED CELL DISTRIBUTION WIDTH 17.3 % (11.6-14.6)
[2022-05-12 06:49] LABS: PHOSPHORUS 4.7 mg/dL (2.5-4.9)
[2022-05-12 06:50] LABS: PLATELET 15 x1000/uL (130-400)
[2022-05-12 08:00] VITALS: BP 107/47
[2022-05-12] MEDS: PANTOPRAZOLE SODIUM 40 MG/VIAL IV SCH (08:41)
[2022-05-12] MEDS: FOLIC ACID 1MG TABLET PO SCH (08:41)
[2022-05-12] MEDS: POLYETHYLENE GLYCOL 3350 (17GM) 1 DOSE PACK PO SCH (08:41)
[2022-05-12] MEDS: MEGESTROL ACETATE 400 MG/10 ML UDC PO SCH (08:41)
[2022-05-12 09:06] LABS: IMMUNOGLOBULIN A 16 mg/dL (87-352); IMMUNOGLOBULIN G 227 mg/dL (586-1602); IMMUNOGLOBULIN M <5 mg/dL (26-217)
[2022-05-12 09:53] LABS: PLATELET ESTIMATE MARKEDLY DECREASED
[2022-05-12 10:09] LABS: KAPPA/LAMBDA RATIO 0 (0.26-1.65)
[2022-05-12 12:00] VITALS: BP 121/67
[2022-05-12 15:57] VITALS: BP 105/70
[2022-05-12] MEDS: CEFEPIME 1,000 MG in DEXTROSE 5% WATER 50 ML IV SCH (17:30)
[2022-05-12 20:00] VITALS: BP 108/63
[2022-05-12] MEDS: ACETAMINOPHEN 325MG TABLET PO PRN (20:49)
[2022-05-12] MEDS: ACETAMINOPHEN 650MG SUPP PR PRN (23:57)
[2022-05-13 00:30] VITALS: BP 100/80
[2022-05-13 04:00] VITALS: BP 102/64
[2022-05-13] MEDS: MIDODRINE HCL 5MG TABLET PO SCH ×3 (06:00→22:00)
[2022-05-13] MEDS: BLOOD SUGAR DIAGNOSTIC STRIP TEST SCH ×3 (06:37→18:53)
[2022-05-13 07:11] LABS: HEMATOCRIT. 21.9 % (36.0-48.0); HEMOGLOBIN. 7.3 g/dL (12.0-16.0); MEAN CORPUSCULAR HEMOGLOBIN 29.6 pg (28.0-32.0); MEAN CORPUSCULAR VOLUME 89.2 fL (81.0-99.0); MEAN PLATELET VOLUME 9.5 fl (7.4-10.4); RED BLOOD CELL COUNT 2.46 mill/uL (4.2-5.4); RED CELL DISTRIBUTION WIDTH 17.2 % (11.6-14.6)
[2022-05-13 08:00] VITALS: BP 97/65
[2022-05-13] MEDS: POLYETHYLENE GLYCOL 3350 (17GM) 1 DOSE PACK PO SCH (08:13)
[2022-05-13] MEDS: FOLIC ACID 1MG TABLET PO SCH (08:13)
[2022-05-13] MEDS: PANTOPRAZOLE SODIUM 40 MG/VIAL IV SCH (09:20)
[2022-05-13 10:15] LABS: PLATELET ESTIMATE MARKEDLY DECREASED
[2022-05-13 10:16] LABS: PLATELET 16 x1000/uL (130-400)
[2022-05-13 12:00] VITALS: BP 104/63
[2022-05-13 16:30] VITALS: BP 102/62
[2022-05-13] MEDS: CEFEPIME 1,000 MG in DEXTROSE 5% WATER 50 ML IV SCH (17:26)
[2022-05-13] MEDS: ACETAMINOPHEN 650MG SUPP PR PRN (17:33)
[2022-05-13 20:00] VITALS: BP 101/60
[2022-05-14] VITALS: BP 105/68
[2022-05-14] MEDS: BLOOD SUGAR DIAGNOSTIC STRIP TEST SCH ×4 (00:20→18:31)
[2022-05-14] MEDS: MEROPENEM 1,000 MG in SODIUM CHLORIDE 0.9% 100 ML IV SCH ×3 (00:23→21:26)
[2022-05-14] MEDS: AZITHROMYCIN 500 MG in DEXT 5% WATER 250 ML IV SCH ×2 (00:57→21:26)
[2022-05-14] MEDS: ACETAMINOPHEN 650MG SUPP PR PRN (05:22)
[2022-05-14] MEDS: MIDODRINE HCL 5MG TABLET PO SCH ×3 (05:46→21:27)
[2022-05-14 07:32] LABS: HEMATOCRIT. 24.3 % (36.0-48.0); HEMOGLOBIN. 7.8 g/dL (12.0-16.0); MEAN CORPUSCULAR HEMOGLOBIN 29.2 pg (28.0-32.0); MEAN CORPUSCULAR VOLUME 90.6 fL (81.0-99.0); MEAN PLATELET VOLUME 10.1 fl (7.4-10.4); RED BLOOD CELL COUNT 2.69 mill/uL (4.2-5.4); RED CELL DISTRIBUTION WIDTH 17.6 % (11.6-14.6)
[2022-05-14 07:40] LABS: CHLORIDE 105 mEq/L (98-107)
[2022-05-14 07:51] LABS: PLATELET 17 x1000/uL (130-400)
[2022-05-14 08:00] VITALS: BP 111/70
[2022-05-14] MEDS: FOLIC ACID 1MG TABLET PO SCH (09:00)
[2022-05-14] MEDS: POLYETHYLENE GLYCOL 3350 (17GM) 1 DOSE PACK PO SCH (09:00)
[2022-05-14] MEDS ORDERED: SODIUM CHLORIDE 0.9% 250 ML IV SCH (10:00)
[2022-05-14] MEDS: PANTOPRAZOLE SODIUM 40 MG/VIAL IV SCH (10:28)
[2022-05-14 12:00] VITALS: BP 105/68
[2022-05-14 16:00] VITALS: BP 113/70
[2022-05-14 17:25] LABS: PLATELET ESTIMATE MARKEDLY DECREASED
[2022-05-14] MEDS: DEXT 5%/0.45% NACL 1000ML 1,000 ML IV SCH (18:31)
[2022-05-14 20:00] VITALS: BP 96/68
[2022-05-15] VITALS (7 sets, daily range): BP systolic 97–106; BP diastolic 50–64
[2022-05-15] MEDS: MIDODRINE HCL 5MG TABLET PO SCH ×3 (06:00→21:53)
[2022-05-15] MEDS: BLOOD SUGAR DIAGNOSTIC STRIP TEST SCH ×4 (06:00→17:58)
[2022-05-15] MEDS: FOLIC ACID 1MG TABLET PO SCH (09:00)
[2022-05-15] MEDS: POLYETHYLENE GLYCOL 3350 (17GM) 1 DOSE PACK PO SCH (09:00)
[2022-05-15] MEDS: PANTOPRAZOLE SODIUM 40 MG/VIAL IV SCH (09:00)
[2022-05-15] MEDS: MEROPENEM 1,000 MG in SODIUM CHLORIDE 0.9% 100 ML IV SCH ×2 (10:18→21:53)
[2022-05-15] MEDS: DEXT 5%/0.45% NACL 1000ML 1,000 ML IV SCH (12:00)
[2022-05-15 15:33] LABS: MEAN CORPUSCULAR HEMOGLOBIN 28.9 pg (28.0-32.0); MEAN CORPUSCULAR VOLUME 90.3 fL (81.0-99.0); MEAN PLATELET VOLUME 11.3 fl (7.4-10.4); RED BLOOD CELL COUNT 2.32 mill/uL (4.2-5.4); RED CELL DISTRIBUTION WIDTH 17.7 % (11.6-14.6)
[2022-05-15 15:45] LABS: HEMOGLOBIN. 6.7 g/dL (12.0-16.0)
[2022-05-15 15:46] LABS: PLATELET 29 x1000/uL (130-400)
[2022-05-15 16:22] LABS: PLATELET ESTIMATE MARKEDLY DECREASED
[2022-05-15] MEDS: ACETAMINOPHEN 650MG SUPP PR PRN (18:37)
[2022-05-15] MEDS: AZITHROMYCIN 500 MG in DEXT 5% WATER 250 ML IV SCH (21:53)
[2022-05-16] VITALS (10 sets, daily range): BP systolic 87–101; BP diastolic 51–72
[2022-05-16] MEDS: MIDODRINE HCL 5MG TABLET PO SCH ×3 (05:20→19:50)
[2022-05-16] MEDS: BLOOD SUGAR DIAGNOSTIC STRIP TEST SCH ×4 (05:21→18:29)
[2022-05-16] MEDS: PANTOPRAZOLE SODIUM 40 MG/VIAL IV SCH (08:37)
[2022-05-16] MEDS: POLYETHYLENE GLYCOL 3350 (17GM) 1 DOSE PACK PO SCH (08:37)
[2022-05-16] MEDS: FOLIC ACID 1MG TABLET PO SCH (08:37)
[2022-05-16] MEDS: DEXT 5%/0.45% NACL 1000ML 1,000 ML IV SCH (08:38)
[2022-05-16] MEDS: MEROPENEM 1,000 MG in SODIUM CHLORIDE 0.9% 100 ML IV SCH ×2 (10:11→19:50)
[2022-05-16 10:16] LABS: HEMATOCRIT. 21.9 % (36.0-48.0); HEMOGLOBIN. 7.2 g/dL (12.0-16.0); MEAN CORPUSCULAR HEMOGLOBIN 29.1 pg (28.0-32.0); MEAN CORPUSCULAR VOLUME 89.3 fL (81.0-99.0); MEAN PLATELET VOLUME 9.8 fl (7.4-10.4); RED BLOOD CELL COUNT 2.46 mill/uL (4.2-5.4); RED CELL DISTRIBUTION WIDTH 17.3 % (11.6-14.6)
[2022-05-16 10:48] LABS: PLATELET 16 x1000/uL (130-400)
[2022-05-16] MEDS: ACETAMINOPHEN 650MG SUPP PR PRN (12:20)
[2022-05-16] MEDS: AZITHROMYCIN 500 MG in DEXT 5% WATER 250 ML IV SCH (19:50)
[2022-05-16 22:36] LABS: PLATELET ESTIMATE MARKEDLY DECREASED
[2022-05-17] VITALS: BP 101/62
[2022-05-17 04:00] VITALS: BP 98/60
[2022-05-17] MEDS: MIDODRINE HCL 5MG TABLET PO SCH ×3 (05:44→21:47)
[2022-05-17] MEDS: BLOOD SUGAR DIAGNOSTIC STRIP TEST SCH ×5 (05:44→23:48)
[2022-05-17 07:51] LABS: HEMOGLOBIN. 9.5 g/dL (12.0-16.0); MEAN CORPUSCULAR HEMOGLOBIN 29.2 pg (28.0-32.0); MEAN CORPUSCULAR VOLUME 86.2 fL (81.0-99.0); MEAN PLATELET VOLUME 10.4 fl (7.4-10.4); RED BLOOD CELL COUNT 3.25 mill/uL (4.2-5.4); RED CELL DISTRIBUTION WIDTH 16.2 % (11.6-14.6)
[2022-05-17 08:03] VITALS: BP 117/65
[2022-05-17] MEDS: DEXT 5%/0.45% NACL 1000ML 1,000 ML IV SCH ×2 (08:16→23:39)
[2022-05-17] MEDS: PANTOPRAZOLE SODIUM 40 MG/VIAL IV SCH (08:17)
[2022-05-17] MEDS: POLYETHYLENE GLYCOL 3350 (17GM) 1 DOSE PACK PO SCH (08:17)
[2022-05-17] MEDS: FOLIC ACID 1MG TABLET PO SCH (08:17)
[2022-05-17] MEDS: ACETAMINOPHEN 650MG SUPP PR PRN (08:19)
[2022-05-17] MEDS ORDERED: MORPHINE SULFATE 2 MG/ML CPJ (NOT FOR IM USE) IV ONE (10:00)
[2022-05-17] MEDS: MEROPENEM 1,000 MG in SODIUM CHLORIDE 0.9% 100 ML IV SCH (10:44)
[2022-05-17 11:05] LABS: PLATELET ESTIMATE MARKEDLY DECREASED
[2022-05-17 11:06] LABS: PLATELET 17 x1000/uL (130-400)
[2022-05-17 12:00] VITALS: BP 97/61
[2022-05-17] MEDS ORDERED: MAGIC MOUTHWASH XX PRN (14:00)
[2022-05-17 16:00] VITALS: BP 107/66
[2022-05-17 20:00] VITALS: BP 102/66
[2022-05-17] MEDS ORDERED: VANCOMYCIN 750MG PREMIX 150 ML IV NR (21:00)
[2022-05-17] MEDS: AZITHROMYCIN 500 MG in DEXT 5% WATER 250 ML IV SCH (23:39)
[2022-05-17] MEDS: MORPHINE SULFATE 2 MG/ML CPJ (NOT FOR IM USE) IV PRN (23:54)
[2022-05-18] VITALS: BP 105/62
[2022-05-18 04:00] VITALS: BP 107/68
[2022-05-18] MEDS: BLOOD SUGAR DIAGNOSTIC STRIP TEST SCH ×3 (06:27→17:13)
[2022-05-18] MEDS: MIDODRINE HCL 5MG TABLET PO SCH ×3 (07:04→21:29)
[2022-05-18 08:00] VITALS: BP 99/62
[2022-05-18] MEDS: MEROPENEM 500MG in NORMAL SALINE 50ML IV SCH (08:31)
[2022-05-18] MEDS: FOLIC ACID 1MG TABLET PO SCH ×2 (08:31→08:41)
[2022-05-18] MEDS: PANTOPRAZOLE SODIUM 40 MG/VIAL IV SCH (08:31)
[2022-05-18] MEDS: POLYETHYLENE GLYCOL 3350 (17GM) 1 DOSE PACK PO SCH ×2 (08:32→08:41)
[2022-05-18] MEDS: ACETAMINOPHEN 650MG SUPP PR PRN (11:47)
[2022-05-18 12:00] VITALS: BP 95/54
[2022-05-18 16:00] VITALS: BP 105/69
[2022-05-18 20:00] VITALS: BP 97/69
[2022-05-18] MEDS: DEXT 5%/0.45% NACL 1000ML 1,000 ML IV SCH (20:52)
[2022-05-18] MEDS ORDERED: ACYCLOVIR 200MG CAPSULE PO PRN (22:45)
[2022-05-19] VITALS: BP 122/80
[2022-05-19] MEDS: DEXTROSE 50% WATER 50ML SYRINGE IV PRN ×2 (00:33→12:56)
[2022-05-19] MEDS: BLOOD SUGAR DIAGNOSTIC STRIP TEST SCH ×4 (00:37→17:43)
[2022-05-19 04:00] VITALS: BP 111/61
[2022-05-19] MEDS: MIDODRINE HCL 5MG TABLET PO SCH ×3 (06:00→21:33)
[2022-05-19 08:00] VITALS: BP 104/74
[2022-05-19 08:05] LABS: HEMATOCRIT. 29.5 % (36.0-48.0); HEMOGLOBIN. 9.8 g/dL (12.0-16.0); MEAN CORPUSCULAR HEMOGLOBIN 29.4 pg (28.0-32.0); MEAN CORPUSCULAR VOLUME 88.1 fL (81.0-99.0); MEAN PLATELET VOLUME 10.9 fl (7.4-10.4); RED BLOOD CELL COUNT 3.34 mill/uL (4.2-5.4); RED CELL DISTRIBUTION WIDTH 16.6 % (11.6-14.6)
[2022-05-19 08:11] LABS: PLATELET 15 x1000/uL (130-400)
[2022-05-19] MEDS ORDERED: FUROSEMIDE 20MG TABLET PO SCH (09:00)
[2022-05-19] MEDS: POLYETHYLENE GLYCOL 3350 (17GM) 1 DOSE PACK PO SCH ×2 (09:00→09:09)
[2022-05-19] MEDS ORDERED: FAMOTIDINE 20MG TABLET PO SCH (09:00)
[2022-05-19] MEDS ORDERED: AMLODIPINE 5MG TABLET PO SCH (09:00)
[2022-05-19] MEDS: PANTOPRAZOLE SODIUM 40 MG/VIAL IV SCH (09:08)
[2022-05-19] MEDS: FOLIC ACID 1MG TABLET PO SCH (09:09)
[2022-05-19 12:00] VITALS: BP 126/79
[2022-05-19] MEDS: MEROPENEM 500MG in NORMAL SALINE 50ML IV SCH (13:43)
[2022-05-19] MEDS ORDERED: BENZONATATE 100MG CAPSULE PO PRN (15:30)
[2022-05-19 16:00] VITALS: BP 117/74
[2022-05-19 16:54] LABS: PLATELET ESTIMATE MARKEDLY DECREASED
[2022-05-19] MEDS: GUAIFENESIN 600MG ER TABLET PO SCH (17:15)
[2022-05-19] MEDS: DEXT 5%/0.45% NACL 1000ML 1,000 ML IV SCH (17:16)
[2022-05-19 20:00] VITALS: BP 118/62
[2022-05-19] MEDS ORDERED: VANCOMYCIN 500MG PREMIX 100 ML IV NR (21:00)
[2022-05-19] MEDS ORDERED: GABAPENTIN 300MG CAPSULE PO SCH (23:00)
[2022-05-20] VITALS: BP 127/74
[2022-05-20 04:00] VITALS: BP 132/77
[2022-05-20] MEDS: BLOOD SUGAR DIAGNOSTIC STRIP TEST SCH ×4 (06:00→18:00)
[2022-05-20] MEDS: MIDODRINE HCL 5MG TABLET PO SCH ×3 (06:49→21:17)
[2022-05-20 07:47] LABS: CHLORIDE 107 mEq/L (98-107)
[2022-05-20 07:52] LABS: HEMATOCRIT. 27.2 % (36.0-48.0); HEMOGLOBIN. 9.2 g/dL (12.0-16.0); MEAN CORPUSCULAR HEMOGLOBIN 29.5 pg (28.0-32.0); MEAN CORPUSCULAR VOLUME 87.4 fL (81.0-99.0); MEAN PLATELET VOLUME 10.9 fl (7.4-10.4); RED BLOOD CELL COUNT 3.11 mill/uL (4.2-5.4); RED CELL DISTRIBUTION WIDTH 16.7 % (11.6-14.6)
[2022-05-20 08:00] VITALS: BP 135/82
[2022-05-20 08:13] LABS: PLATELET 14 x1000/uL (130-400)
[2022-05-20] MEDS: POLYETHYLENE GLYCOL 3350 (17GM) 1 DOSE PACK PO SCH (09:00)
[2022-05-20] MEDS: PANTOPRAZOLE SODIUM 40 MG/VIAL IV SCH (10:10)
[2022-05-20] MEDS: FOLIC ACID 1MG TABLET PO SCH (10:10)
[2022-05-20] MEDS: GUAIFENESIN 600MG ER TABLET PO SCH ×2 (10:20→21:16)
[2022-05-20] MEDS: MEROPENEM 500MG in NORMAL SALINE 50ML IV SCH (10:20)
[2022-05-20] MEDS: ACETAMINOPHEN 650MG SUPP PR PRN (10:28)
[2022-05-20] MEDS: MORPHINE SULFATE 2 MG/ML CPJ (NOT FOR IM USE) IV PRN ×2 (11:23→21:27)
[2022-05-20 12:00] VITALS: BP 119/79
[2022-05-20] MEDS: DEXT 5%/0.45% NACL 1000ML 1,000 ML IV SCH (12:19)
[2022-05-20] MEDS: DEXTROSE 50% WATER 50ML SYRINGE IV PRN (12:24)
[2022-05-20 16:00] VITALS: BP 93/59
[2022-05-20 17:15] LABS: PLATELET ESTIMATE MARKEDLY DECREASED
[2022-05-20 20:00] VITALS: BP 127/73
[2022-05-21] VITALS: BP 123/69
[2022-05-21 04:00] VITALS: BP 112/76
[2022-05-21] MEDS: MIDODRINE HCL 5MG TABLET PO SCH ×3 (05:39→22:00)
[2022-05-21] MEDS: BLOOD SUGAR DIAGNOSTIC STRIP TEST SCH ×4 (05:54→18:54)
[2022-05-21] MEDS: POLYETHYLENE GLYCOL 3350 (17GM) 1 DOSE PACK PO SCH (09:00)
[2022-05-21 12:00] VITALS: BP 121/72
[2022-05-21] MEDS: DEXT 5%/0.45% NACL 1000ML 1,000 ML IV SCH (12:51)
[2022-05-21] MEDS: FOLIC ACID 1MG TABLET PO SCH (12:51)
[2022-05-21] MEDS: GUAIFENESIN 600MG ER TABLET PO SCH ×2 (12:51→20:47)
[2022-05-21] MEDS: MEROPENEM 500MG in NORMAL SALINE 50ML IV SCH (12:51)
[2022-05-21] MEDS: PANTOPRAZOLE SODIUM 40 MG/VIAL IV SCH (13:22)
[2022-05-21] MEDS: DEXTROSE 50% WATER 50ML SYRINGE IV PRN ×2 (14:04→15:17)
[2022-05-21 19:56] LABS: HEMATOCRIT. 28.5 % (36.0-48.0); HEMOGLOBIN. 9.5 g/dL (12.0-16.0); MEAN CORPUSCULAR HEMOGLOBIN 29.3 pg (28.0-32.0); MEAN CORPUSCULAR VOLUME 87.4 fL (81.0-99.0); MEAN PLATELET VOLUME 11.9 fl (7.4-10.4); RED BLOOD CELL COUNT 3.26 mill/uL (4.2-5.4); RED CELL DISTRIBUTION WIDTH 16.6 % (11.6-14.6)
[2022-05-21 20:00] VITALS: BP 143/79
[2022-05-21 20:10] LABS: PLATELET 7 x1000/uL (130-400)
[2022-05-21 20:43] LABS: NUCLEATED RED BLOOD CELLS 2 /100 WBC
[2022-05-21 20:44] LABS: PLATELET ESTIMATE MARKEDLY DECREASED
[2022-05-21] MEDS ORDERED: VANCOMYCIN 500MG PREMIX 100 ML IV SCH (21:00)
[2022-05-21] MEDS: ACETAMINOPHEN 325MG TABLET PO PRN (23:42)
[2022-05-22] VITALS: BP 148/89
[2022-05-22 04:00] VITALS: BP 128/81
[2022-05-22] MEDS: DEXT 5%/0.45% NACL 1000ML 1,000 ML IV SCH (05:29)
[2022-05-22] MEDS: MIDODRINE HCL 5MG TABLET PO SCH ×3 (05:55→22:00)
[2022-05-22] MEDS: BLOOD SUGAR DIAGNOSTIC STRIP TEST SCH ×4 (06:14→17:47)
[2022-05-22 07:05] LABS: HEMATOCRIT. 27.6 % (36.0-48.0); HEMOGLOBIN. 9.4 g/dL (12.0-16.0); MEAN CORPUSCULAR HEMOGLOBIN 29.6 pg (28.0-32.0); MEAN CORPUSCULAR VOLUME 86.4 fL (81.0-99.0); MEAN PLATELET VOLUME 10.8 fl (7.4-10.4); RED CELL DISTRIBUTION WIDTH 16.5 % (11.6-14.6)
[2022-05-22 07:38] LABS: PLATELET 8 x1000/uL (130-400)
[2022-05-22] MEDS: GUAIFENESIN 600MG ER TABLET PO SCH ×2 (09:00→21:00)
[2022-05-22] MEDS: FOLIC ACID 1MG TABLET PO SCH (09:00)
[2022-05-22] MEDS: MEROPENEM 500MG in NORMAL SALINE 50ML IV SCH (09:00)
[2022-05-22] MEDS: PANTOPRAZOLE SODIUM 40 MG/VIAL IV SCH (09:00)
[2022-05-22] MEDS: POLYETHYLENE GLYCOL 3350 (17GM) 1 DOSE PACK PO SCH (09:00)
[2022-05-22 15:15] LABS: HEPATITIS B SURFACE ANTIGEN NEGATIVE
[2022-05-22 20:00] VITALS: BP 151/85
[2022-05-23] VITALS (7 sets, daily range): BP systolic 100–144; BP diastolic 60–84
[2022-05-23] MEDS: BLOOD SUGAR DIAGNOSTIC STRIP TEST SCH ×4 (00:33→17:37)
[2022-05-23] MEDS: DEXT 5%/0.45% NACL 1000ML 1,000 ML IV SCH ×2 (00:33)
[2022-05-23] MEDS: PANTOPRAZOLE SODIUM 40 MG/VIAL IV SCH (08:50)
[2022-05-23] MEDS: FOLIC ACID 1MG TABLET PO SCH (08:51)
[2022-05-23] MEDS: GUAIFENESIN 600MG ER TABLET PO SCH ×2 (08:51→21:00)
[2022-05-23] MEDS: POLYETHYLENE GLYCOL 3350 (17GM) 1 DOSE PACK PO SCH (08:51)
[2022-05-23] MEDS: MEROPENEM 500MG in NORMAL SALINE 50ML IV SCH (08:51)
[2022-05-23 10:36] LABS: PLATELET ESTIMATE MARKEDLY DECREASED
[2022-05-23] MEDS ORDERED: NON FORMULARY PATIENT HOME MED XX SCH (12:30)
[2022-05-23] MEDS: ACETAMINOPHEN 325MG TABLET PO PRN ×2 (13:14→21:30)
[2022-05-23] MEDS: MIDODRINE HCL 5MG TABLET PO SCH ×2 (14:00→22:00)
[2022-05-23 17:53] LABS: HEMATOCRIT. 24.4 % (36.0-48.0); HEMOGLOBIN. 8.5 g/dL (12.0-16.0); MEAN CORPUSCULAR HEMOGLOBIN 30.2 pg (28.0-32.0); MEAN CORPUSCULAR VOLUME 87.2 fL (81.0-99.0); MEAN PLATELET VOLUME 10.5 fl (7.4-10.4); RED CELL DISTRIBUTION WIDTH 16.6 % (11.6-14.6)
[2022-05-23 18:11] LABS: PLATELET 5 x1000/uL (130-400)
[2022-05-23 21:55] LABS: NUCLEATED RED BLOOD CELLS 2 /100 WBC; PLATELET ESTIMATE MARKEDLY DECREASED
[2022-05-24] VITALS: BP 98/62
[2022-05-24] MEDS: BLOOD SUGAR DIAGNOSTIC STRIP TEST SCH ×4 (06:23→18:05)
[2022-05-24] MEDS: MIDODRINE HCL 5MG TABLET PO SCH ×3 (06:32→22:00)
[2022-05-24 07:44] LABS: HEMATOCRIT. 22.7 % (36.0-48.0); HEMOGLOBIN. 7.9 g/dL (12.0-16.0); MEAN CORPUSCULAR HEMOGLOBIN 29.9 pg (28.0-32.0); MEAN CORPUSCULAR VOLUME 86.4 fL (81.0-99.0); MEAN PLATELET VOLUME 8.6 fl (7.4-10.4); RED BLOOD CELL COUNT 2.63 mill/uL (4.2-5.4)
[2022-05-24 07:56] LABS: PLATELET 19 x1000/uL (130-400)
[2022-05-24 08:00] VITALS: BP 124/80
[2022-05-24] MEDS: POLYETHYLENE GLYCOL 3350 (17GM) 1 DOSE PACK PO SCH (09:00)
[2022-05-24] MEDS: PANTOPRAZOLE SODIUM 40 MG/VIAL IV SCH ×2 (09:00→10:07)
[2022-05-24] MEDS ORDERED: POTASSIUM CHLORIDE 20MEQ/PACKET PO NR (10:00)
[2022-05-24] MEDS: ACETAMINOPHEN 325MG TABLET PO PRN (10:07)
[2022-05-24] MEDS: GUAIFENESIN 600MG ER TABLET PO SCH ×2 (10:08→21:00)
[2022-05-24] MEDS: FOLIC ACID 1MG TABLET PO SCH (10:08)
[2022-05-24 10:26] LABS: NUCLEATED RED BLOOD CELLS 1 /100 WBC
[2022-05-24 10:27] LABS: PLATELET ESTIMATE MARKEDLY DECREASED
[2022-05-24 12:00] VITALS: BP 113/68
[2022-05-24 16:00] VITALS: BP_SYST 117
[2022-05-24] MEDS: DEXT 5%/0.45% NACL 1000ML 1,000 ML IV SCH (16:00)
[2022-05-24 20:00] VITALS: BP 105/61
[2022-05-25] VITALS: BP 100/55
[2022-05-25] MEDS: MIDODRINE HCL 5MG TABLET PO SCH ×3 (05:50→20:16)
[2022-05-25] MEDS: BLOOD SUGAR DIAGNOSTIC STRIP TEST SCH ×4 (05:51→17:40)
[2022-05-25 08:00] VITALS: BP 122/79
[2022-05-25] MEDS: FOLIC ACID 1MG TABLET PO SCH (08:46)
[2022-05-25] MEDS: GUAIFENESIN 600MG ER TABLET PO SCH ×2 (08:46→20:16)
[2022-05-25] MEDS: POLYETHYLENE GLYCOL 3350 (17GM) 1 DOSE PACK PO SCH (08:47)
[2022-05-25] MEDS: MEROPENEM 500MG in NORMAL SALINE 50ML IV SCH (10:14)
[2022-05-25] MEDS: PANTOPRAZOLE SODIUM 40 MG/VIAL IV SCH (10:39)
[2022-05-25 12:00] VITALS: BP 124/80
[2022-05-25] MEDS: DEXT 5%/0.45% NACL 1000ML 1,000 ML IV SCH (12:44)
[2022-05-25 16:00] VITALS: BP 135/67
[2022-05-26] VITALS (7 sets, daily range): BP systolic 108–131; BP diastolic 61–85
[2022-05-26] MEDS: MIDODRINE HCL 5MG TABLET PO SCH ×2 (05:39→14:00)
[2022-05-26] MEDS: BLOOD SUGAR DIAGNOSTIC STRIP TEST SCH ×4 (05:39→18:00)
[2022-05-26] MEDS: DEXT 5%/0.45% NACL 1000ML 1,000 ML IV SCH (08:00)
[2022-05-26] MEDS: GUAIFENESIN 600MG ER TABLET PO SCH (09:00)
[2022-05-26] MEDS ORDERED: MEROPENEM 500 MG in SODIUM CHLORIDE 0.9% 50 ML IV SCH (09:00)
[2022-05-26] MEDS ORDERED: NALOXONE HCL 0.4MG/ML VIAL IV PRN (09:30)
[2022-05-26] MEDS ORDERED: MORPHINE SULFATE 2 MG/ML CPJ (NOT FOR IM USE) IV PRN (09:30)
[2022-05-26] MEDS: FOLIC ACID 1MG TABLET PO SCH (12:15)
[2022-05-26] MEDS: POLYETHYLENE GLYCOL 3350 (17GM) 1 DOSE PACK PO SCH (12:15)
[2022-05-26] MEDS: PANTOPRAZOLE SODIUM 40 MG/VIAL IV SCH (12:16)
[2022-05-26] MEDS: ACETAMINOPHEN 325MG TABLET PO PRN (12:16)
[2022-05-26] MEDS ORDERED: VANCOMYCIN 500MG PREMIX 100 ML IV NR (14:00)
[2022-05-26] MEDS ORDERED: DOXY100C5 MT (16:46)
[2022-05-26] MEDS ORDERED: AMOX1TAB15 MT (16:46)
[2022-05-26] MEDS ORDERED: PANT40TA51 MT (16:51)
[2022-05-26] MEDS ORDERED: GUAI600T44 PO (16:51)
[2022-05-26] MEDS ORDERED: POLY17PO3 PO (16:51)
[2022-05-26] MEDS ORDERED: MIDO5TAB4 PO (16:51)
[2022-05-26] MEDS ORDERED: FOLI-43 PO (16:51)
[2022-05-26] MEDS ORDERED: DEXT 5% WATER + KCL 40MEQ/L 1,000 ML IV NR (17:00)
[2022-05-26] MEDS ORDERED: POTASSIUM CHLORIDE INJ 40 MEQ in DEXTROSE 5% WATER 1,000 ML IV ONE (18:00)
== END 2022-05-26 21:45 | disposition hospice, home (50) | DRG 871 ==
LOC: ER 08:26 → EDBEDREQ 10:12 → EDBEDREQTM 10:12 → EDBEDREQSVC 10:12 → 8WST 11:10 → EDBEDREQ 11:18 → EDBEDREQSVC 11:18 → EDBEDREQTM 11:31 → EDBEDREQ 11:31 → ENRESERV 14:02 → 6EST 05-18 22:00
PROVIDERS: ADMIT Internal Medicine; ATTEND Internal Medicine
PROC: 30233N1 Transfusion of Nonautologous Red Blood Cells into Peripheral Vein, Percutaneous Approach (ICD-10-PCS; principal; 2022-05-07)
PROC: 5A1D70Z Performance of Urinary Filtration, Intermittent, Less than 6 Hours Per Day (ICD-10-PCS; 2022-05-09)
PROC: 5A1D70Z Performance of Urinary Filtration, Intermittent, Less than 6 Hours Per Day (ICD-10-PCS; 2022-05-12)
PROC: 5A1D70Z Performance of Urinary Filtration, Intermittent, Less than 6 Hours Per Day (ICD-10-PCS; 2022-05-14)
PROC: 5A1D70Z Performance of Urinary Filtration, Intermittent, Less than 6 Hours Per Day (ICD-10-PCS; 2022-05-19)
PROC: 5A1D70Z Performance of Urinary Filtration, Intermittent, Less than 6 Hours Per Day (ICD-10-PCS; 2022-05-21)
DX: A41.9 Sepsis, unspecified organism (principal); E43 Unspecified severe protein-calorie malnutrition; N18.6 End stage renal disease; J18.9 Pneumonia, unspecified organism; C90.00 Multiple myeloma not having achieved remission; I12.0 Hypertensive chronic kidney disease with stage 5 chronic kidney disease or end stage renal disease; E87.1 Hypo-osmolality and hyponatremia; G93.40 Encephalopathy, unspecified; J90 Pleural effusion, not elsewhere classified; I51.7 Cardiomegaly; J40 Bronchitis, not specified as acute or chronic; D69.6 Thrombocytopenia, unspecified; K44.9 Diaphragmatic hernia without obstruction or gangrene; K56.41 Fecal impaction; D63.1 Anemia in chronic kidney disease; E78.00 Pure hypercholesterolemia, unspecified; I95.9 Hypotension, unspecified; R62.7 Adult failure to thrive; E80.6 Other disorders of bilirubin metabolism; D72.825 Bandemia; K29.00 Acute gastritis without bleeding; Z68.20 Body mass index [BMI] 20.0-20.9, adult; Z99.2 Dependence on renal dialysis; Z66 Do not resuscitate; Z51.5 Encounter for palliative care; Z20.822 Contact with and (suspected) exposure to COVID-19
CPT/HCPCS: 36415; 71045; 74018; 74176; 76856; 80048; 80053; 80076; 80202; 82248; 82607; 82728; 82746; 82784; 82962; 83540; 83550; 83605; 83615; 83735; 83883; 84100; 84145; 84484; 85018; 85025; 85044; 85384; 86334; 86705; 86709; 86803; 86850; 86900; 86920; 87340; 87426; 93005; 93923; 93970; 99291; C1893; C9113; J0456; J0692; J2185; J2270; J2543; J3370; J3480; J7030; J7050; J7060; J7070; P9016; P9034